=== PATIENT | male | born 1970 | race Caucasian/White ===

== ENCOUNTER → 2018-12-23 | Outpatient (CLI) | payer BC ==
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
== END ==
LOC: SLEEP 16:23
PROVIDERS: ATTEND Internal Medicine
DX: G47.33 Obstructive sleep apnea (adult) (pediatric) (principal); E66.9 Obesity, unspecified; I10 Essential (primary) hypertension; E78.5 Hyperlipidemia, unspecified; Z98.890 Other specified postprocedural states; Z90.49 Acquired absence of other specified parts of digestive tract; Z79.899 Other long term (current) drug therapy; Z79.82 Long term (current) use of aspirin; Z87.891 Personal history of nicotine dependence
CPT/HCPCS: 99211

== ENCOUNTER → 2019-04-21 | Outpatient (CLI) | payer BC ==
--- NOTE | 2019-04-21 20:14 | PN ---
PROGRESS NOTE DATE OF SERVICE: 04/21/2019 This patient is a 49-year-old gentleman who has been followed in Sleep Center for treatment of obstructive sleep apnea-hypopnea syndrome. Recently the patient had a home sleep apnea test which showed severe obstructive sleep apnea, and then a CPAP titration was done. I discussed the results of his sleep studies with the patient in detail. Home sleep study showed apnea-hypopnea index 56.6 with oxygen desaturation to 77%. During titration, respiration normalized at the pressure 10-11 cm of water. Subsequently the patient was started on treatment with CPAP. Today is his first visit after starting treatment with CPAP. The patient is able to use CPAP equipment without significant problems with mask fitting, pressure or humidification. [place] Sleepiness Scale today is only 2. I checked his CPAP unit. Usage is 100% of nights for more than 4 hours with average usage 6.9 hours per night. Leak is only 1 L/minute, which is perfect. CPAP pressure is 10 cm of water. Apnea-hypopnea index for the last month average was 11.4, for the last night 6.9. MEDICATIONS: 1. Aspirin. 2. Lisinopril. 3. Atorvastatin. PHYSICAL EXAMINATION: GENERAL: A pleasant patient in no distress. VITAL SIGNS: BP 130/78, HR 76, RR 16, weight 236, temperature 98 degrees. HEENT: PERRLA, EOMI. Evaluation of oropharynx showed tongue protrudes midline. Extremely low position of soft palate. Mallampati IV. NECK: Supple. No JVD. Thyroid is not palpable. LUNGS: Clear to percussion and to auscultation. Good air exchange. No wheezing or rhonchi. HEART: S1, S2 regular. No murmurs, gallops or rubs. ABDOMEN: Slightly obese. EXTREMITIES: No clubbing or cyanosis. FRONT OFFICE DEVELOPER: Awake, alert, and oriented X3. Cranial nerves 2 to 7 intact. There is no fasciculation or atrophy. noted. No focal deficits observed. IMPRESSION: 1. Extremely severe obstructive sleep apnea-hypopnea syndrome; apnea-hypopnea index 56.6 with oxygen desaturation to 77%. The patient demonstrated 100% compliance with treatment, benefitting from treatment, but apnea-hypopnea index from the machine is still slightly above normal range. 2. Obesity. 3. Hypertension. 4. Status post mitral valve repair in 2005. PLAN: 1. I will increase the range of pressure, switch machine to automatic regimen with a maximal pressure of 15. 2. Patient will continue to use CPAP equipment every night. 3. Sleep hygiene with regular time in bed for at least 8 hours. 4. No driving if feeling any sleepiness. Thank you very much for allowing me to participate in the management of your patient. Sincerely, Chidi Edward MD, PhD, FAASM Diplomat of [employer] Insurance Account Manager of [facility] [place] MMODL / IJN: [id number] /
== END | disposition home or self-care (01) ==
LOC: SLEEP 16:06
PROVIDERS: ATTEND Internal Medicine
DX: G47.33 Obstructive sleep apnea (adult) (pediatric) (principal); E66.9 Obesity, unspecified; I10 Essential (primary) hypertension; Z99.89 Dependence on other enabling machines and devices; Z98.890 Other specified postprocedural states; Z79.82 Long term (current) use of aspirin; Z79.899 Other long term (current) drug therapy

== ENCOUNTER → 2019-06-30 | Outpatient (CLI) | payer BC ==
--- NOTE | 2019-06-30 18:24 | PN ---
PROGRESS NOTE DATE OF SERVICE: 06/30/2019 This patient is a 49-year-old gentleman who has been followed in Sleep Center for treatment of obstructive sleep apnea-hypopnea syndrome. Patient continues to use his CPAP equipment every night for the whole night. During his previous visit I adjusted the pressure in his machine, and according to the patient, now he sleeps better after the pressure was changed. [place] Sleepiness Scale today is only 2. The patient reports difficulties breathing through his nose during the night while he uses his CPAP equipment, closing one side of the nose sometimes and then the other side of the nose. The patient complains of the closing of his throat at night and during the day. MEDICATIONS: 1. Aspirin. 2. Lisinopril. 3. Atorvastatin. PHYSICAL EXAMINATION: GENERAL: A pleasant patient in no distress. VITAL SIGNS: BP 138/82, HR 75, RR 16, height 5 feet 8 inches, weight 237.2, body mass index 36.1, temperature 98.4, oxygen saturation at room air 94%. HEENT: PERRLA, EOMI. Evaluation of oropharynx showed tongue protrudes midline. Extremely low position of soft palate. Mallampati IV. Some restriction of nasal breathing. NECK: Supple. No JVD. Thyroid is not palpable. LUNGS: Clear to percussion and to auscultation. Good air exchange. No wheezing or rhonchi. HEART: S1, S2 regular. No murmurs, gallops or rubs. ABDOMEN: Slightly obese. EXTREMITIES: No clubbing or cyanosis. CLINIC RECEPTIONIST: Awake, alert, and oriented X3. Cranial nerves 2 to 7 intact. There is no fasciculation or atrophy. noted. No focal deficits observed. IMPRESSION: 1. Obstructive sleep apnea-hypopnea syndrome. Patient has demonstrated great compliance with treatment, benefitting from treatment. 2. Restriction of nasal breathing. 3. Hypertension. 4. Obesity. 5. Status post mitral valve repair in 2005. PLAN: 1. Patient will continue to use CPAP equipment every night for the whole night. 2. Losing weight. 3. Sleep hygiene with regular time in bed for at least 7-1/2 hours. 4. Referral to Ear, Nose and Throat physician for evaluation of breathing through the nose and possibly correction of nasal breathing. 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 5. No driving if feeling any sleepiness. 6. Follow-up visit in 3 months. Thank you very much for allowing me to participate in the management of your patient. Sincerely, Chidi Edward MD, PhD, FAASM Diplomat of [employer] [employer] Filter Tank Tender Helper Head of [facility] [place] MMODL / NICKIE: [phone] /
== END ==
LOC: SLEEP 16:20
PROVIDERS: ATTEND Internal Medicine
DX: G47.33 Obstructive sleep apnea (adult) (pediatric) (principal); I10 Essential (primary) hypertension; E66.9 Obesity, unspecified; Z98.890 Other specified postprocedural states; Z99.89 Dependence on other enabling machines and devices; Z79.82 Long term (current) use of aspirin; Z79.899 Other long term (current) drug therapy

== ENCOUNTER → 2019-09-12 | Outpatient (CLI) | payer BC ==
--- NOTE | 2019-09-12 10:02 | CT ---
EXAMINATION TYPE: CT angio chest DATE OF EXAM: 09/12/2019 COMPARISON: None HISTORY: Ascending Aortic Aneurysm CT DLP: 1044.8 mGycm CONTRAST: CTA thoracic aorta with 3-D reconstruction is performed and without and with IV Contrast, patient inj ected with 100 mL of Isovue 370. Contrast CTA of the thoracic aorta was performed from the lung apex through the upper abdomen. 3D re construction imaging obtained at a separate workstation. CT Chest: THORACIC AORTA: No evidence for thoracic aortic aneurysm. Mild atheromatous changes seen. There is n o evidence for dissection or periaortic collection. LUNGS: The lungs are clear and free of infiltrate or atelectasis. No pulmonary nodule or mass is det ected. Left basilar calcified granuloma mild basilar compressive atelectasis. No pleural effusion or CT evidence of interstitial lung disease. MEDIASTINUM: No evidence for mediastinal hematoma. The heart is not enlarged. No evidence for med iastinal mass or adenopathy. HILAR STRUCTURES: No evidence for mass. No hilar adenopathy is appreciated. OTHER: No significant abnormality. IMPRESSION- No evidence for thoracic aortic aneurysm
== END | disposition home or self-care (01) ==
LOC: RADCTMAIN 08:40
PROVIDERS: ATTEND Internal Medicine Interventional Cardiology
DX: I71.9 Aortic aneurysm of unspecified site, without rupture (principal)
CPT/HCPCS: 71275; Q9967

== ENCOUNTER → 2019-09-29 | Outpatient (CLI) | payer BC ==
--- NOTE | 2019-09-29 18:11 | PN ---
PROGRESS NOTE DATE OF SERVICE: 09/29/2019 This 49-year-old gentleman has been evaluated in Sleep Center for treatment of obstructive apnea/hypopnea syndrome. The patient continues to use his CPAP equipment every night for the whole night without significant problems related to mask fitting, pressure, or humidification. [place] Sleepiness Scale today is 0. No snoring with the machine. He is receiving supplies on time. I checked the CPAP unit. CPAP pressure is 12 cm of water. Usage is 30 out of 39 for more than 4 hours with average usage 7.5 hours per night. Liters, only 1 liter per minute. Apnea/hypopnea index 2.6 which is absolutely perfect. MEDICATIONS: 1. Lisinopril. 2. Aspirin. 3. Atorvastatin. PHYSICAL EXAMINATION: GENERAL: A pleasant patient in no distress. VITAL SIGNS: BP 116/74, HR 62, RR 16, height 5 feet 8 inches, weight 236 pounds, body mass index 35.8, temperature 98.0, oxygen saturation at room air 94%. HEENT: PERRLA, EOMI: Oropharynx, extremely low position of soft palate. Mallampati IV. NECK: Supple, no JVD. Thyroid is not palpable. LUNGS: Clear to percussion and to auscultation. Good air exchange. No wheezing or rhonchi. HEART: S1, S2 regular. No murmurs, gallops, or rubs. ABDOMEN: Abdomen slightly obese. EXTREMITIES: No clubbing or cyanosis. HOSE TESTER: Awake, alert, and oriented X3. Cranial nerves 2 to 7 intact. There is no fasciculation or atrophy. noted. No focal deficits observed. IMPRESSION: 1. Obstructive sleep apnea-hypopnea syndrome. The patient demonstrated 100% compliance with treatment and benefitting from treatment. 2. Hypertension. 3. Obesity. 4. Status post mitral valve repair in 2005. 5. Some restriction of nasal breathing. PLAN: 1. The patient will continue to use CPAP equipment every night for the whole night. 2. Losing weight. 3. Sleep hygiene with time in bed for at least 7.5 to 8 hours. 4. No driving if feeling sleepiness. 5. Will maintain all necessary prescriptions for CPAP supplies including mask, tube, filters. Thank you very much for allowing me to participate in the management of your patient. Sincerely, Chidi Edward MD, PhD, FAASM Diplomat of [employer] Sleep Medicine Board by [employer] Prosthetic Lab Technician of [facility] [place] PORFIRIO / NICKIE: [phone] /
== END | disposition home or self-care (01) ==
LOC: SLEEP 16:38
PROVIDERS: ATTEND Internal Medicine
DX: G47.33 Obstructive sleep apnea (adult) (pediatric) (principal); I10 Essential (primary) hypertension; E66.9 Obesity, unspecified; Z68.35 Body mass index [BMI] 35.0-35.9, adult; Z95.2 Presence of prosthetic heart valve; Z79.82 Long term (current) use of aspirin; Z79.899 Other long term (current) drug therapy

== ENCOUNTER 2020-06-18 18:40 | Observation (INO) | payer BC ==
--- NOTE | 2020-06-18 19:50 | XR ---
EXAMINATION TYPE: XR chest 2V DATE OF EXAM: 06/18/2020 COMPARISON: NONE HISTORY: Short of breath TECHNIQUE: 2 views FINDINGS: There is some mild atelectasis at the lung bases. There is no pleural effusion. Heart size is normal. There are sternal wires. There is no heart failure. Bony thorax is intact. IMPRESSION: Mild subsegmental atelectasis at the lung bases. Normal heart.
[2020-06-18] MEDS ORDERED: IBUPROFEN 600 MG TAB PO STA (20:11)
[2020-06-18] MEDS ORDERED: ONDANSETRON ODT 4 MG TAB PO STA (20:11)
[2020-06-18] MEDS ORDERED: guaiFENesin-DM 600/30MG 1 EACH TAB.ER.12H PO STA (20:18)
[2020-06-18 21:17] LABS: SARS-CoV-2 RNA Rapid Abbott Detected (Not Detectd)
[2020-06-18] MEDS ORDERED: ACETAMINOPHEN TAB 500 MG TAB PO PRN (21:27)
[2020-06-18] MEDS ORDERED: ALBUTEROL NEBULIZED 2.5 MG/3 ML INHALATION PRN (21:27)
[2020-06-18 22:23] LABS: ALT 39 U/L (4-49); AST 43 U/L (17-59); African American GFR (CKD) >90 (>60 ml/min/1.73 sqM); Albumin 3.9 g/dL (3.5-5.0); Alkaline Phosphatase 64 U/L (38-126); Anion Gap 8 mmol/L; Basophils # (A) 0.1 k/uL (0-0.2); Basophils % (A) 1 %; Blood Urea Nitrogen 17 mg/dL (9-20); C Reactive Protein 15.1 mg/L (<10.0); Calcium 8.9 mg/dL (8.4-10.2); Carbon Dioxide 29 mmol/L (22-30); Chloride 96 mmol/L (98-107); Eosinophils % (A) 0 %; Glucose 109 mg/dL (74-99); HCT 53.4 % (39.0-53.0); HGB 18.2 gm/dL (13.0-17.5); LDH 594 U/L (313-618); Lymphocytes # (A) 0.9 k/uL (1.0-4.8); Lymphocytes % (A) 15 %; MCH 31.3 pg (25.0-35.0); MCHC 34.1 g/dL (31.0-37.0); MCV 91.6 fL (80.0-100.0); Magnesium 1.8 mg/dL (1.6-2.3); Mean Platelet Volume 7.8; Monocytes # (A) 0.5 k/uL (0-1.0); Monocytes % (A) 9 %; Neutrophils # (A) 4.2 k/uL (1.3-7.7); Neutrophils % (A) 72 %; Non-African American GFR(CKD) 87 (>60 ml/min/1.73 sqM); Platelet Count 200 k/uL (150-450); Potassium 3.7 mmol/L (3.5-5.1); RBC 5.83 m/uL (4.30-5.90); RDW 13.8 % (11.5-15.5); Sodium 133 mmol/L (137-145); Total Protein 6.6 g/dL (6.3-8.2); WBC 5.8 k/uL (3.8-10.6)
[2020-06-18] MEDS ORDERED: NALOXONE 0.4 MG/ML 1 ML VIAL IV PRN (22:23)
[2020-06-18] MEDS ORDERED: ACETAMINOPHEN TAB 325 MG TAB PO PRN (22:23)
[2020-06-18 22:26] LABS: Partial Thromboplastin Time 26.7 sec (22.0-30.0); Prothrombin Time 10.7 sec (9.0-12.0)
--- NOTE | 2020-06-18 22:29 | ED ---
General Adult HPI - General Chief complaint: Upper Respiratory Infection Stated complaint: fever/SOB Time Seen by Provider: 06/18/20 20:01 Source: patient Mode of arrival: ambulatory Limitations: no limitations - Related Data Home Medications Medication Instructions Recorded Confirmed Aspirin 162 mg PO HS 08/01/15 06/18/20 Lisinopril-Hctz 20-25 mg 1 tab PO DAILY 08/01/15 06/18/20 [Zestoretic 20-25] Atorvastatin [Lipitor] 20 mg PO HS 06/18/20 06/18/20 Allergies Allergy/AdvReac Type Severity Reaction Status Date / Time No Known Allergies Allergy Verified 06/18/20 20:31 Review of Systems ROS Statement: Those systems with pertinent positive or pertinent negative responses have been documented in the HPI. ROS Other: All systems not noted in ROS Statement are negative. Past Medical History Past Medical History: Hyperlipidemia, Hypertension Additional Past Medical History / Comment(s): recent abd. pain History of Any Multi-Drug Resistant Organisms: None Reported Additional Past Surgical History / Comment(s): mitral valve repaired Past Anesthesia/Blood Transfusion Reactions: No Reported Reaction Past Psychological History: No Psychological Hx Reported Smoking Status: Never smoker Past Alcohol Use History: Occasional Past Drug Use History: None Reported - Past Family History Mother Family Medical History: No Reported History General Exam Limitations: no limitations Course Vital Signs 06/18/20 06/18/20 18:47 21:00 Temperature 102.0 F H 101.3 F H Pulse Rate 91 85 Respiratory 18 18 Rate Blood Pressure 124/80 105/58 O2 Sat by Pulse 95 95 Oximetry Medical Decision Making - Lab Data Result diagrams: 06/18/20 22:01 06/18/20 22:01 Lab Results 06/18/20 06/18/20 06/18/20 Range/Units 20:44 22:01 22:01 WBC 5.8 (3.8-10.6) k/uL RBC 5.83 (4.30-5.90) m/uL Hgb 18.2 H (13.0-17.5) gm/dL Hct 53.4 H (39.0-53.0) % MCV 91.6 (80.0-100.0) fL MCH 31.3 (25.0-35.0) pg MCHC 34.1 (31.0-37.0) g/dL RDW 13.8 (11.5-15.5) % Plt Count 200 (150-450) k/uL Neutrophils % 72 % Lymphocytes % 15 % Monocytes % 9 % Eosinophils % 0 % Basophils % 1 % Neutrophils # 4.2 (1.3-7.7) k/uL Lymphocytes # 0.9 L (1.0-4.8) k/uL Monocytes # 0.5 (0-1.0) k/uL Eosinophils # 0.0 (0-0.7) k/uL Basophils # 0.1 (0-0.2) k/uL Sodium 133 L (137-145) mmol/L Potassium 3.7 (3.5-5.1) mmol/L Chloride 96 L (98-107) mmol/L Carbon Dioxide 29 (22-30) mmol/L Anion Gap 8 mmol/L BUN 17 (9-20) mg/dL Creatinine 1.00 (0.66-1.25) mg/dL Est GFR (CKD-EPI)AfAm >90 (>60 ml/min/1.73 sqM) Est GFR (CKD-EPI)NonAf 87 (>60 ml/min/1.73 sqM) Glucose 109 H (74-99) mg/dL Plasma Lactic Acid Nadir (0.7-2.0) mmol/L Calcium 8.9 (8.4-10.2) mg/dL Magnesium 1.8 (1.6-2.3) mg/dL Total Bilirubin 1.0 (0.2-1.3) mg/dL AST 43 (17-59) U/L ALT 39 (4-49) U/L Alkaline Phosphatase 64 (38-126) U/L Lactate Dehydrogenase 594 (313-618) U/L C-Reactive Protein 15.1 H (<10.0) mg/L Total Protein 6.6 (6.3-8.2) g/dL Albumin 3.9 (3.5-5.0) g/dL Coronavirus (PCR) Detected A (Not Detectd) Influenza Type A RNA Not Detected (Not Detectd) Influenza Type B (PCR) Not Detected (Not Detectd) 06/18/20 Range/Units 22:01 WBC (3.8-10.6) k/uL RBC (4.30-5.90) m/uL Hgb (13.0-17.5) gm/dL Hct (39.0-53.0) % MCV (80.0-100.0) fL MCH (25.0-35.0) pg MCHC (31.0-37.0) g/dL RDW (11.5-15.5) % Plt Count (150-450) k/uL Neutrophils % % Lymphocytes % % Monocytes % % Eosinophils % % Basophils % % Neutrophils # (1.3-7.7) k/uL Lymphocytes # (1.0-4.8) k/uL Monocytes # (0-1.0) k/uL Eosinophils # (0-0.7) k/uL Basophils # (0-0.2) k/uL Sodium (137-145) mmol/L Potassium (3.5-5.1) mmol/L Chloride (98-107) mmol/L Carbon Dioxide (22-30) mmol/L Anion Gap mmol/L BUN (9-20) mg/dL Creatinine (0.66-1.25) mg/dL Est GFR (CKD-EPI)AfAm (>60 ml/min/1.73 sqM) Est GFR (CKD-EPI)NonAf (>60 ml/min/1.73 sqM) Glucose (74-99) mg/dL Plasma Lactic Acid Nadir 1.3 (0.7-2.0) mmol/L Calcium (8.4-10.2) mg/dL Magnesium (1.6-2.3) mg/dL Total Bilirubin (0.2-1.3) mg/dL AST (17-59) U/L ALT (4-49) U/L Alkaline Phosphatase (38-126) U/L Lactate Dehydrogenase (313-618) U/L C-Reactive Protein (<10.0) mg/L Total Protein (6.3-8.2) g/dL Albumin (3.5-5.0) g/dL Coronavirus (PCR) (Not Detectd) Influenza Type A RNA (Not Detectd) Influenza Type B (PCR) (Not Detectd) Disposition Clinical Impression: COVID-19, Hypoxia Disposition: ADMITTED IP TO THIS HOSP Condition: Serious Referrals: Regis Lee MD [Primary Care Provider] - 1-2 days Decision to Admit Reason: Admit from EC Decision Date: 06/18/20 Decision Time: 22:29
[2020-06-18 22:30] LABS: D-Dimer 0.64 mg/L FEU (<0.60)
--- NOTE | 2020-06-18 22:38 | ED ---
General Adult HPI - General Chief complaint: Upper Respiratory Infection Stated complaint: fever/SOB Time Seen by Provider: 06/18/20 20:01 Source: patient Mode of arrival: ambulatory Limitations: no limitations - History of Present Illness Initial comments: 50-year-old male with 10 day history of fever, cough, and shortness of breath presents to emergency department this evening with worsening symptoms. States that he feels more short of breath especially with activity and has been having higher fevers. Patient states he did have a positive COVID exposure nearly 2 weeks ago and tested negative at the onset of symptoms. Patient states he has been taking Tylenol Cold and flu at home for the past 7 days but did not experience any improvement. Denied taking any medication prior to arrival today to treat his fever. Patient denies any recent rash, chills, chest pain, abdominal pain, nausea, vomiting, diarrhea, constipation, back pain, numbness, tingling, dizziness, weakness, hematuria, dysuria, urinary urgency, urinary frequency, headache, visual changes, or any other complaints. - Related Data Home Medications Medication Instructions Recorded Confirmed Aspirin 162 mg PO HS 08/01/15 06/18/20 Lisinopril-Hctz 20-25 mg 1 tab PO DAILY 08/01/15 06/18/20 [Zestoretic 20-25] Atorvastatin [Lipitor] 20 mg PO HS 06/18/20 06/18/20 Allergies Allergy/AdvReac Type Severity Reaction Status Date / Time No Known Allergies Allergy Verified 06/18/20 20:31 Review of Systems ROS Statement: Those systems with pertinent positive or pertinent negative responses have been documented in the HPI. ROS Other: All systems not noted in ROS Statement are negative. Past Medical History Past Medical History: Hyperlipidemia, Hypertension Additional Past Medical History / Comment(s): recent abd. pain History of Any Multi-Drug Resistant Organisms: None Reported Additional Past Surgical History / Comment(s): mitral valve repaired Past Anesthesia/Blood Transfusion Reactions: No Reported Reaction Past Psychological History: No Psychological Hx Reported Smoking Status: Never smoker Past Alcohol Use History: Occasional Past Drug Use History: None Reported - Past Family History Mother Family Medical History: No Reported History General Exam Limitations: no limitations (Well-developed, well-nourished male in no acute distress. Initial temperature 102.0F, pulse 91, respirations 18, blood pressure 124/80, pulse ox 95% on room air.) General appearance: alert, in no apparent distress ENT exam: Present: normal exam, mucous membranes moist Respiratory exam: Present: normal lung sounds bilaterally, other (tachypneic and appears short of breath during conversation). Absent: respiratory distress, wheezes, rales, rhonchi, stridor Cardiovascular Exam: Present: regular rate, normal rhythm, normal heart sounds. Absent: systolic murmur, diastolic murmur, rubs, gallop, clicks GI/Abdominal exam: Present: soft, normal bowel sounds, other (Tolerating PO without difficulty). Absent: distended, tenderness, guarding, rebound, rigid Neurological exam: Present: alert, oriented X3, CN II-XII intact Psychiatric exam: Present: normal affect, normal mood Skin exam: Present: warm, dry, intact, normal color. Absent: rash Course Vital Signs 06/18/20 06/18/20 06/18/20 18:47 21:00 22:20 Temperature 102.0 F H 101.3 F H 100.8 F H Pulse Rate 91 85 81 Respiratory 18 18 18 Rate Blood Pressure 124/80 105/58 110/62 O2 Sat by Pulse 95 95 94 L Oximetry Medical Decision Making - Medical Decision Making 50-year-old male presents to the emergency department with a 10-day history of fever, cough, and shortness of breath. States he has had mild nausea throughout the day today. Patient reports positive COVID contact approximately 14 days ago and has tested negative once. Upon presentation, patient is febrile at 102.1F therefore Motrin was given. Patient is tachypneic with conversation at rest; nebulizer treatment rendered. Chest x-ray shows mild subsegmental atelectasis at the lung bases. Patient's rapid Covid test was positive, CRP is elevated at 15.1, influenza negative. Patient's ambulation trial was unsuccessful; pulse ox dropped to 86% on room air while walking and was able to recover to 94% on room air with rest. This case was discussed with my attending. Patient will be admitted for further evaluation and treatment; he verbalizes understanding and agrees with this plan. - Lab Data Result diagrams: 06/18/20 22:01 06/18/20 22:01 Lab Results 06/18/20 Range/Units 20:44 Coronavirus (PCR) Detected A (Not Detectd) Influenza Type A RNA Not Detected (Not Detectd) Influenza Type B (PCR) Not Detected (Not Detectd) - EKG Data EKG shows normal: sinus rhythm Rate: normal EKG Comments: EKG obtained at 2136 shows normal sinus rhythm. Ventricular rate of 87, WA interval 206, QRS duration 108, QT/QTC 358/430. Interpretation is normal ECG. - Radiology Data Radiology results: report reviewed Chest x-ray was obtained. I didn't include some mild atelectasis at the lung bases. No pleural effusion. Heart size is normal. Sternal wires present. No heart failure. Impression per Dr. Porter is mild subsegmental atelectasis at the lung bases. Normal heart. Disposition Clinical Impression: COVID-19, Hypoxia Disposition: ADMITTED IP TO THIS HOSP Condition: Serious
--- NOTE | 2020-06-19 08:19 | P.CNPUL ---
History of Present Illness Consult date: 06/19/20 Requesting physician: Rosemarie Maloney Reason for consult: dyspnea, cough Chief complaint: Fever, cough, shortness of breath,COVID 19 History of present illness: 50-year-old white male patient of Dr. Channing Chaudhari, with past medical history of hypertension, hyperlipidemia, nonsmoker, presented to the emergency department on 06/18/2020 with complaints of fever, cough, shortness of breath onset of symptoms 10 days ago. He stated worsening symptoms, worsening exertional dyspnea, higher fevers. She had a cold exposure nearly 2 weeks ago but tested negative at the onset of symptoms. He has been taking [id number]-[id number] Tylenol cold and flu without much improvement. Denies any nausea vomiting or abdominal pain, no headaches, weakness, dizziness, no urinary symptoms, no visual changes. Chest x-ray shows mild atelectasis at the lung bases. Blood work showed the lymphopenia with a lymphocyte count of 0.9, white blood cell count is 5.8, hemoglobin is 18.2, with hematocrit of 53.4, consistent with dehydration, d-dimer is 0.64, sodium is 133, potassium 3.7, chloride is 96, lactic acid is 1.3, ferritin level was 696, pro calcitonin level is negative at 0.09, CRP is 15.1, coronavirus PCR was positive, influenza A and B was negative. Fever is 102 on admission, room air pulse ox is 94%, blood pressures 97/52, clinically patient looks quite stable, we can alert, oriented 3, no altered mentation, breathing comfortably, no significant cough, no congestion. He was started on Mucinex, bronchodilators, he is tolerating oral diet, this morning his temp is 97.8. Review of Systems All systems: negative Constitutional: Reports fever, Denies chills Eyes: denies blurred vision, denies pain Ears, nose, mouth and throat: Denies headache, Denies sore throat Cardiovascular: Denies chest pain, Denies shortness of breath Respiratory: Reports cough, Reports dyspnea Gastrointestinal: Denies abdominal pain, Denies diarrhea, Denies nausea, Denies vomiting Musculoskeletal: Denies myalgias Integumentary: Denies pruritus, Denies rash Neurological: Denies numbness, Denies weakness Psychiatric: Denies anxiety, Denies depression Endocrine: Denies fatigue, Denies weight change Past Medical History Past Medical History: Hyperlipidemia, Hypertension Additional Past Medical History / Comment(s): positive covid 06/18/20 History of Any Multi-Drug Resistant Organisms: None Reported Past Surgical History: Cholecystectomy Additional Past Surgical History / Comment(s): mitral valve repaired Past Anesthesia/Blood Transfusion Reactions: No Reported Reaction Past Psychological History: No Psychological Hx Reported Smoking Status: Former smoker Past Alcohol Use History: Occasional Past Drug Use History: None Reported - Past Family History Mother Family Medical History: No Reported History Medications and Allergies Home Medications Medication Instructions Recorded Confirmed Type Aspirin 162 mg PO HS 08/01/15 06/18/20 History Lisinopril-Hctz 20-25 mg 1 tab PO DAILY 08/01/15 06/18/20 History [Zestoretic 20-25] Atorvastatin [Lipitor] 20 mg PO HS 06/18/20 06/18/20 History Allergies Allergy/AdvReac Type Severity Reaction Status Date / Time No Known Allergies Allergy Verified 06/18/20 23:18 Physical Exam Vitals: Vital Signs Temp Pulse Pulse Resp BP BP Pulse Ox 06/19/20 02:43 97.8 F 64 18 97/52 94 L 06/18/20 23:40 99.4 F 82 18 105/72 92 L 06/18/20 22:20 100.8 F H 81 18 110/62 94 L 06/18/20 21:00 101.3 F H 85 18 105/58 95 06/18/20 18:47 102.0 F H 91 18 124/80 95 Intake and Output 06/18/20 06/19/20 06/19/20 22:59 06:59 14:59 Other: Voiding Method Toilet # Voids 1 Weight 104.326 kg GENERAL EXAM: Alert, very pleasant, 50-year-old white male, on room air, with a pulse ox of 94%, sitting up in a chair,, comfortable in no apparent distress. HEAD: Normocephalic/atraumatic. EYES: Normal reaction of pupils, equal size. Conjunctiva pink, sclera white. NOSE: Clear with pink turbinates. THROAT: No erythema or exudates. NECK: No masses, no JVD, no thyroid enlargement, no adenopathy. CHEST: No chest wall deformity. Symmetrical expansion. LUNGS: Equal air entry with no crackles, wheeze, rhonchi or dullness. CVS: Regular rate and rhythm, normal S1 and S2, no gallops, no murmurs, no rubs ABDOMEN: Soft, nontender. No hepatosplenomegaly, normal bowel sounds, no guarding or rigidity. EXTREMITIES: No clubbing, no edema, no cyanosis, 2+ pulses and upper and lower extremities. MUSCULOSKELETAL: Muscle strength and tone normal. SPINE: No scoliosis or deformity SKIN: No rashes CENTRAL NERVOUS SYSTEM: Alert and oriented -3. No focal deficits, tone is normal in all 4 extremities. PSYCHIATRIC: Alert and oriented -3. Appropriate affect. Intact judgment and insight. Results - Laboratory Findings CBC and BMP: 06/18/20 22:01 06/18/20 22:01 PT/INR, D-dimer PT 10.7 sec (9.0-12.0) 06/18/20 22: INR 1.0 (<1.2) 06/18/20 22:01 D-Dimer 0.64 mg/L FEU (<0.60) H 06/18/20 22:01 Abnormal lab findings: Abnormal Labs 06/18/20 06/18/20 06/18/20 20:44 22:01 22:01 Hgb 18.2 H Hct 53.4 H Lymphocytes # 0.9 L D-Dimer 0.64 H Sodium Chloride Glucose Ferritin C-Reactive Protein Coronavirus (PCR) Detected A 06/18/20 22:01 Hgb Hct Lymphocytes # D-Dimer Sodium 133 L Chloride 96 L Glucose 109 H Ferritin 696.0 H C-Reactive Protein 15.1 H Coronavirus (PCR) - Diagnostic Findings Chest x-ray: report reviewed, image reviewed Assessment and Plan Plan: Assessment: #1. Dyspnea, cough, fever related to COVID 19 viral infection, with onset of symptoms more than 10 days ago. Chest x-ray shows no acute process, patient is on room air, afebrile this morning. #2. Hypertension #3. Hyperipidemia #4. Dehydration #5. Mildly elevated d-dimer, and CRP, related to viral infection Plan: Fever pattern has improved, signs are stable, encourage oral intake, no nausea vomiting or diarrhea, breathing comfortable, lab work and chest x-ray reviewed, patient is on room air, symptoms are mild, inflammatory markers are not significantly elevated, recommend discharge home today with supportive treatment, 10 day course of oral Decadron 6 mg daily, zinc supplement, vitamin C supplement. I performed a history & physical examination of the patient and discussed their management with my nurse practitioner, Avis Hicks. I reviewed the nurse practitioner's note and agree with the documented findings and plan of care. Lung sounds are positive for diminished breath sounds. The findings and the impression was discussed with the patient. I attest to the documentation by the nurse practitioner. Time with Patient: Greater than 30
[2020-06-19] MEDS ORDERED: ALBUTEROL HFA INHALER INHALATION PRN (08:38)
[2020-06-19 09:37] VITALS: BP 98/55; PULSE 65; RESP 16; TEMP 98
--- NOTE | 2020-06-19 11:43 | P.DS ---
Providers Date of admission: 06/18/20 21:38 Attending physician: Rosemarie Maloney Consults: 06/18/20 22:24 Consult Physician Routine Consulting Provider: Patrick Mckeon Consult Reason/Comments: COVID; Hypoxia Do you want consulting provider notified?: Yes Consult Physician Routine Consulting Provider: Rafael Goldstein Consult Reason/Comments: COVID infection Do you want consulting provider notified?: Yes Primary care physician: Channing Lee [facility] Course: please refer to [facility] for further details Patient Condition at Discharge: Serious Plan - Discharge Summary Discharge Rx Participant: No New Discharge Prescriptions: Discontinued Lisinopril-Hctz 20-25 mg [Zestoretic 20-25] 1 tab PO DAILY No Action Aspirin 162 mg PO HS Atorvastatin [Lipitor] 20 mg PO HS Discharge Medication List Aspirin 162 mg PO HS 08/01/15 [History] Atorvastatin [Lipitor] 20 mg PO HS 06/18/20 [History] Follow up Appointment(s)/Referral(s): Regis Lee MD [Primary Care Provider] - 3 Days Discharge Disposition: HOME SELF-CARE
--- NOTE | 2020-06-19 11:43 | P.HPIM ---
History of Present Illness patient is a pleasant 50-year-old male came in with complaints of mild worsening exertional dyspnea and high-grade fevers. Patient's symptoms started about 10 days ago. Found to have Covid 19. Patient is saturating well on room air feeling better wanted to be discharged. Her blood pressures are bit low was receiving IV fluids patient is on lisinopril and hydrochlorothiazide. Patient is also bit hyponatremic.patient the blood pressure medication will be held until he is seen by primary care physician in about 3-7 days. Patient is afebrile today. Patient will be discharged today with isolation instructions and care instructions regarding Covid. Review of Systems REVIEW OF SYSTEMS: CONSTITUTIONAL: as mentioned in HPI. HEENT: No recent visual problems or hearing problems. Denied any sore throat. CARDIOVASCULAR: No chest pain, orthopnea, PND, no palpitations, no syncope. PULMONARY:, no cough, no hemoptysis. GASTROINTESTINAL: No diarrhea, no nausea, no vomiting, no abdominal pain. NEUROLOGICAL: No headaches, no weakness, no numbness. HEMATOLOGICAL: Denies any bleeding or petechiae. GENITOURINARY: Denies any burning micturition, frequency, or urgency. MUSCULOSKELETAL/RHEUMATOLOGICAL: Denies any joint pain, swelling, or any muscle pain. ENDOCRINE: Denies any polyuria or polydipsia. The rest of the 14-point review of systems is negative. Past Medical History Past Medical History: Hyperlipidemia, Hypertension Additional Past Medical History / Comment(s): positive covid 06/18/20 History of Any Multi-Drug Resistant Organisms: None Reported Past Surgical History: Cholecystectomy Additional Past Surgical History / Comment(s): mitral valve repaired Past Anesthesia/Blood Transfusion Reactions: No Reported Reaction Past Psychological History: No Psychological Hx Reported Smoking Status: Former smoker Past Alcohol Use History: Occasional Past Drug Use History: None Reported - Past Family History Mother Family Medical History: No Reported History Medications and Allergies Home Medications Medication Instructions Recorded Confirmed Type Aspirin 162 mg PO HS 08/01/15 06/18/20 History Atorvastatin [Lipitor] 20 mg PO HS 06/18/20 06/18/20 History Allergies Allergy/AdvReac Type Severity Reaction Status Date / Time No Known Allergies Allergy Verified 06/18/20 23:18 Physical Exam Vitals: Vital Signs Temp Pulse Pulse Resp BP BP Pulse Ox 06/19/20 09:00 98.0 F 65 16 98/55 92 L 06/19/20 02:43 97.8 F 64 18 97/52 94 L 06/18/20 23:40 99.4 F 82 18 105/72 92 L 06/18/20 22:20 100.8 F H 81 18 110/62 94 L 06/18/20 21:00 101.3 F H 85 18 105/58 95 06/18/20 18:47 102.0 F H 91 18 124/80 95 Intake and Output 06/18/20 06/19/20 06/19/20 22:59 06:59 14:59 Other: Voiding Method Toilet # Voids 1 Weight 104.326 kg PHYSICAL EXAMINATION: GENERAL: The patient is alert and oriented x3, not in any acute distress. Well developed, well nourished. HEENT: Pupils are round and equally reacting to light. EOMI. No scleral icterus. No conjunctival pallor. Normocephalic, atraumatic. No pharyngeal erythema. No thyromegaly. CARDIOVASCULAR: S1 and S2 present. No murmurs, rubs, or gallops. PULMONARY: Chest is clear to auscultation, no wheezing or crackles. ABDOMEN: Soft, nontender, nondistended, normoactive bowel sounds. No palpable organomegaly. MUSCULOSKELETAL: No joint swelling or deformity. EXTREMITIES: No cyanosis, clubbing, or pedal edema. NEUROLOGICAL: Gross neurological examination did not reveal any focal deficits. SKIN: No rashes. Note: Because of [facility], some of the history and physical exam findings are indirect and obtained from nursing staff, and other physician examinations to avoid unnecessary contact with the patient. Results CBC & Chem 7: 06/18/20 22:01 06/18/20 22:01 Labs: Abnormal Lab Results - Last 24 Hours (Table) 06/18/20 06/18/20 06/18/20 Range/Units 20:44 22:01 22:01 Hgb 18.2 H (13.0-17.5) gm/dL Hct 53.4 H (39.0-53.0) % Lymphocytes # 0.9 L (1.0-4.8) k/uL D-Dimer 0.64 H (<0.60) mg/L FEU Sodium (137-145) mmol/L Chloride (98-107) mmol/L Glucose (74-99) mg/dL Ferritin (22.0-322.0) ng/mL C-Reactive Protein (<10.0) mg/L Coronavirus (PCR) Detected A (Not Detectd) 06/18/20 Range/Units 22:01 Hgb (13.0-17.5) gm/dL Hct (39.0-53.0) % Lymphocytes # (1.0-4.8) k/uL D-Dimer (<0.60) mg/L FEU Sodium 133 L (137-145) mmol/L Chloride 96 L (98-107) mmol/L Glucose 109 H (74-99) mg/dL Ferritin 696.0 H (22.0-322.0) ng/mL C-Reactive Protein 15.1 H (<10.0) mg/L Coronavirus (PCR) (Not Detectd) Thrombosis Risk Factor Assmnt - Choose All That Apply Any of the Below Risk Factors Present?: Yes Each Factor Represents 1 point: Age 41-60 years, Obesity (BMI >25) Other Risk Factors: No Other congenital or acquired thrombophilia - If yes, enter type in comment: No Thrombosis Risk Factor Assessment Total Risk Factor Score: 2 Thrombosis Risk Factor Assessment Level: Low Risk Assessment and Plan Plan: -Covid 19 viral infection: Patient's symptoms has been going on for more than 10 days and the patient is clinically doing well will not benefit from any steroids at this time. Patient is clinically doing well will be discharged today. -Hypertension: Patient is actually hypotensive today, SHABANA inhibitor/diuretic combination antihypertensive medication will be held and patient will follow with PCP. -Hyperlipidemia -Mild hyponatremia secondary to his blood pressure medication Patient will be discharged today.
[2020-06-19] MEDS ORDERED: ATORVASTATIN 20 MG TAB PO SCH (21:00)
[2020-06-19] MEDS ORDERED: ASPIRIN 81 MG PO SCH (21:00)
== END 2020-06-19 11:55 | disposition home or self-care (01) ==
LOC: EC 18:40 → 1SOBS 21:38
PROVIDERS: ADMIT Hospitalist; ATTEND Hospitalist
DX: U07.1 COVID-19 (principal); E78.5 Hyperlipidemia, unspecified; I10 Essential (primary) hypertension; E86.0 Dehydration; I95.9 Hypotension, unspecified; E87.1 Hypo-osmolality and hyponatremia; R50.9 Fever, unspecified; R06.82 Tachypnea, not elsewhere classified; R11.0 Nausea; R10.9 Unspecified abdominal pain; E66.9 Obesity, unspecified; Z68.35 Body mass index [BMI] 35.0-35.9, adult; R79.89 Other specified abnormal findings of blood chemistry; Z90.49 Acquired absence of other specified parts of digestive tract; Z87.891 Personal history of nicotine dependence; Z79.82 Long term (current) use of aspirin; Z79.899 Other long term (current) drug therapy
CPT/HCPCS: 99284; 36415; 93005; 85379; 80053; 82728; 83605; 83615; 83735; 85025; 85610; 85730; 86140; 87040; 87502; 84145; 87635; 71046; G0378 ×2

== ENCOUNTER → 2021-08-22 | Outpatient (CLI) | payer BC ==
--- NOTE | 2021-08-22 23:07 | SFUN ---
SLEEP CENTER FOLLOW UP NOTE DATE OF SERVICE: 08/22/2021 This 51-year-old gentleman has been followed in Sleep Center for treatment of obstructive sleep apnea/hypopnea syndrome. The last time I saw this patient was a little over one year ago. The patient continues to use his CPAP equipment every night for the whole night. No snoring with the machine. [place] Sleepiness Scale today is zero. I checked his CPAP unit. CPAP pressure is 12 cm of water, usage 30/30 nights for more than 4 hours, average 7.4 hours per night. Leak is only 1 L/minute. Apnea-hypopnea index is 2.8, which is absolutely normal. MEDICATIONS: 1. Lisinopril 20/25 mg once a day. 2. Atorvastatin 20 mg once a day. 3. Aspirin 81 mg once a day. PHYSICAL EXAMINATION: GENERAL: Pleasant patient in no distress. VITAL SIGNS: BP 145/65, HR 69, RR 14, height 5 feet 8-1/4 inches, weight 243 pounds, body mass index 36.7, temperature 97.5, oxygen saturation at room air 95%. HEENT: PERRLA, EOMI, evaluation of oropharynx showed tongue protrudes midline. Extremely low position of soft palate; Mallampati IV. NECK: Supple, no JVD. Thyroid is not palpable. LUNGS: Clear to percussion and to auscultation. Good air exchange. No wheezing or rhonchi. HEART: S1, S2 regular. No murmurs, gallops, or rubs. ABDOMEN: Slightly obese. EXTREMITIES: No clubbing or cyanosis. CONSULTING TECHNICAL MANAGER: Awake, alert, and oriented X3. Cranial nerves 2 to 7 intact. There is no fasciculation or atrophy. noted. No focal deficits observed. IMPRESSION: 1. Obstructive sleep apnea-hypopnea syndrome. Patient demonstrated great compliance with treatment. Normal respiration on CPAP. 2. Hypertension. 3. Obesity. 4. Status post mitral valve repair in 2005. 5. Status post recent surgery for nasal septum deviation. PLAN: I discussed with the patient the possibility of using a nasal mask instead of full-face mask because surgery of the nose may improve breathing through the nose and allowed him to use nasal mask. At the present time he prefers to continue to use his previous mask. 1. Patient will continue to use PAP equipment every night for the whole night. 2. Sleep hygiene with regular time in bed for at least 7-1/2 to 8 hours. 3. Precautions related to driving. No driving if feeling sleepiness. 4. I will maintain all necessary prescription for PAP supplies including mask, tube, filters. 5. Watching weight. 6. Follow-up visit in 6 months or earlier if patient has any problems. Thank you very much for allowing me to participate in the management of your patient. Sincerely, Chidi Edward MD, PhD, FAASM Diplomat of [place] [employer] Sleep Medicine Board of [place] [employer] Chemical Radiation Technician of [facility] [place] MMODL / IJN: [id number] /
== END ==
LOC: SLEEP 15:34
PROVIDERS: ATTEND Internal Medicine
DX: G47.33 Obstructive sleep apnea (adult) (pediatric) (principal); I10 Essential (primary) hypertension; E66.9 Obesity, unspecified; Z98.890 Other specified postprocedural states; Z99.89 Dependence on other enabling machines and devices; Z79.82 Long term (current) use of aspirin; Z68.36 Body mass index [BMI] 36.0-36.9, adult; Z79.899 Other long term (current) drug therapy; Z87.891 Personal history of nicotine dependence

== ENCOUNTER → 2022-02-27 | Outpatient (CLI) | payer BC ==
--- NOTE | 2022-02-27 16:04 | P.PN ---
Subjective DATE: 02/26/2022 FOLLOW UP VISIT. Patient with obstructive sleep apnea hypopnea syndrome return to sleep center for follow-up visit. Information from previous visit have been reviewed. Patient is using PAP equipment every night for the whole night, getting PAP supplies in time. The patient does not have significant problems with the mask, PAP unit and humidification. [place] sleepiness scale is 1. I checked information from PAP unit. PAP unit pressure 12 cm H2O. Usage is 100 % for more then 4 hours, average 6.7 hours per night. Leak is 0 l/m, which is in acceptable range. Apnea Hypopnea Index is 2.7, which is normal. MEDICATIONS:1. Atorvastatin 20 mg once a day 2. Lisinopril 2025 milligrams once a day During physical exam: GENERAL: A pleasant patient without any distress. VITAL SIGNS: BP 119/75, HR 68, RR 16 , weight 229.6, temperature 96.9, oxygen saturation at room air 96 % . HEENT: PERRLA, EOMI.low position of soft palate, Mallapati4 . NECK: Supple. No JVD. LUNGS: Clear to percussion and to auscultation. Good air exchange. No wheezing or rhonchi. HEART: S1, S2 regular. ABDOMEN: Soft and nontender. Obese EXTREMITIES: No clubbing or cyanosis. PULP MILL OPERATOR: Awake, alert, and oriented x3. No focal deficit. Impressions: 1. Obstructive sleep apnea-hypopnea syndrome. Patient demonstrated great compliance with treatment, benefiting from treatment. 2. Obesity. 3. Hypertension. 4. Status post mitral valve repair in 2005. 5. Status post surgical treatment for nasal septum deviation. Plan: 1. Continue using PAP equipment every night for the whole night. 2. To change air filter at least 1-2 times per month. 3. PAP unit should stay lower then position of the head. 4. Advised patient to remove all remaining water from humidifier canister daily and make it dry after each usage. Refill canister with fresh distilled water before each usage. 5. Sleep hygiene with regular time in bed for at least 8 hours. 6. Precautions related to driving. No driving if feel any sleepiness. 7. I will maintain prescription for PAP supplies including mask, tube, filters. 8. Follow up visit in 6 months or earlier if patient has any problems. 9. Watching weight. Thank you very much for allowing me to participate in the management of your patient. Chidi Edward MD, PhD, FAASM. Diplomat of [place] [employer], Sleep Medicine Board by [place] [employer] Coffee Break Attendant of [facility] [place]
== END ==
LOC: SLEEP 15:20
PROVIDERS: ATTEND Internal Medicine
DX: G47.33 Obstructive sleep apnea (adult) (pediatric) (principal); E66.9 Obesity, unspecified; I10 Essential (primary) hypertension; Z98.890 Other specified postprocedural states; Z99.89 Dependence on other enabling machines and devices; Z86.79 Personal history of other diseases of the circulatory system; Z88.8 Allergy status to other drugs, medicaments and biological substances; Z87.891 Personal history of nicotine dependence

== ENCOUNTER → 2023-11-18 | Outpatient (CLI) | payer BC ==
--- NOTE | 2023-11-18 17:49 | CT ---
CTA CHEST EXAMINATION TYPE: CT angio chest DATE OF EXAM: 11/18/2023 INDICATION: thoracic aortic aneurysm CT DLP: 1147.8 mGycm, Automated exposure control for dose reduction was used. CONTRAST: Patient injected with 100 mL of Isovue 370. COMPARISON: 09/12/2019 TECHNIQUE: CT of the chest is performed on a spiral scan at 2 mm thick sections. Study is performed with intravenous contrast timed for evaluation for thoracic aneurysm. This will limit additional por tions of the evaluation. 3-D MIP images reconstructed by the technologist are reviewed on the [facility] er in the coronal and sagittal planes. FINDINGS: No persistent filling defects are evident to suggest an acute pulmonary embolism. There is a 1.2 cm right hilar lymph node. This is increased from comparison The ascending thoracic aorta at the aortic root is 4.0 cm. Ascending thoracic aorta at the bifurcatio n is 3.6 cm. Main pulmonary artery at the bifurcation is 2.9 cm. Transverse aortic arch measures 2.8 cm. Descending thoracic aorta at the diaphragm is 3.0 cm. Mild coronary artery calcification is prese nt. There is a 1.2 cm hyperdense nodule in the posterior medial left lung. Series 3 image 43. Finding is centrally stable. Limited CT sections were through the upper abdomen. Upper abdomen appears unremarkable. IMPRESSION: 1. Mild prominence of the ascending thoracic aorta at the aortic root. This is increased from compari son 2. Prominent right hilar lymph node
== END | disposition home or self-care (01) ==
LOC: RADCTMAIN 12:34
PROVIDERS: ATTEND Internal Medicine Interventional Cardiology
DX: I77.89 Other specified disorders of arteries and arterioles (principal); R59.0 Localized enlarged lymph nodes
CPT/HCPCS: 71275; Q9967

== ENCOUNTER 2024-06-03 09:57 | Day surgery (SDC) | payer BC ==
[2024-06-02 08:44] VITALS: BMI 33.4
[~2024-06-03 09:57] MED LIST: LIDOCAINE 1% (10MG/ML) FOR IV START INTRADERMA PRN
[2024-06-03] MEDS: IV FLUID CONTINUATION 1,000 ML IV ONE (10:12)
[2024-06-03 10:18] VITALS: TEMP 97.4
[2024-06-03] MEDS: LACTATED RINGERS 1,000 ML IV SCH (10:29)
[2024-06-03] MEDS ORDERED: PROPOFOL 10 MG/ML 20 ML VIAL IV ONE (11:40)
--- NOTE | 2024-06-03 11:54 | P.PCN ---
Date of Procedure: 06/03/24 Procedure(s) Performed: BRIEF HISTORY: Patient is a 54-year-old pleasant white male scheduled for an elective colonoscopy as a part of evaluation millimeter rectal bleeding. PROCEDURE PERFORMED: Colonoscopy with biopsy. PREOPERATIVE DIAGNOSIS: Intermittent rectal bleeding. IV sedation per Anesthesia. PROCEDURE: After informed consent was obtained, the patient, was brought into the endoscopy unit. IV sedation was administered by Anesthesia under continuous monitoring. Digital rectal examination was normal. Initially the Olympus CF-160 flexible video colonoscope was then inserted in the rectum, gradually advanced into the cecum without any difficulty. Careful examination was performed as the scope was gradually being withdrawn. Ileocecal valve and the appendiceal orifice were visualized and appeared normal. Prep was excellent. Mucosa of the cecum, ascending colon normal. In the transverse colon there were 3 mm polyp removed by cold biopsy. Rest of, transverse colon, descending colon, sigmoid colon, and rectum appeared normal. Retroflexion was performed in the rectum and grade 2 internal were seen. The patient tolerated the procedure well. IMPRESSION: 3 mm transverse colon polyp status post removal by cold biopsy Small internal hemorrhoids. RECOMMENDATIONS: Findings of this examination were discussed with the patient as well as his family. With the biopsy results and if the biopsy is adenoma, recommended repeat colonoscopy in 5 years. He was advised to be on high-fiber diet intake of supplements on a regular basis.
[2024-06-03 12:16] VITALS: PULSE 58
[2024-06-03 12:29] VITALS: BP 98/66; RESP 18
== END 2024-06-03 12:36 | disposition home or self-care (01) ==
LOC: ORWHC2ENDO 09:57
PROVIDERS: ATTEND Internal Medicine Gastroenterology
DX: D12.3 Benign neoplasm of transverse colon (principal); K64.1 Second degree hemorrhoids; Z79.899 Other long term (current) drug therapy
CPT/HCPCS: 88305; 45380; J2704